=== PATIENT | male | born 1950 | race Caucasian/White ===

== ENCOUNTER 2016-12-20 01:24 | Inpatient (IN) | payer MEDICARE, BC ==
--- NOTE | 2016-12-20 01:49 | ED ---
General Adult HPI - General Chief complaint: Abdominal Pain Stated complaint: Abdominal Pain Time Seen by Provider: 12/20/16 01:25 Source: patient, EMS, RN notes reviewed Mode of arrival: EMS - History of Present Illness Initial comments: This is a 66-year-old male who was sent to the emergency department from [facility] because he has small bowel obstruction on CAT scan. Patient states that he was having some abdominal pain and cramping as well as diarrhea yesterday but today that stopped and just became more painful since he went to the emergency department in the diagnosed with a small bowel infection. Patient states he had a recent colonoscopy a few months ago. Patient states that he has never had any surgery on his abdomen. Patient states currently he is having occasional cramping but there is no pain at this time. Patient denies any nausea or vomiting at any point in time. Patient denies any fever or chills. Patient states she has past right any bowel movement since she's been at [facility] - Related Data Home Medications Medication Instructions Recorded Confirmed Cyclobenzaprine [Flexeril] 10 mg PO TID PRN 12/05/15 05/29/16 Hydrocodone/Acetaminophen 1 tab PO QID PRN 12/05/15 05/29/16 [Hydrocodon-Acetaminoph 7.5-325] Metoprolol Tartrate [Lopressor] 25 mg PO BID PRN 12/05/15 05/29/16 Allergies Allergy/AdvReac Type Severity Reaction Status Date / Time meperidine HCl [From Demerol] Allergy Hallucinati Verified 12/20/16 01:34 ons Review of Systems ROS Statement: Those systems with pertinent positive or pertinent negative responses have been documented in the HPI. ROS Other: All systems not noted in ROS Statement are negative. Past Medical History Past Medical History: Hypertension Additional Past Medical History / Comment(s): Degenerative Disc Disease History of Any Multi-Drug Resistant Organisms: None Reported Past Surgical History: Back Surgery, Heart Catheterization With Stent, Orthopedic Surgery Additional Past Surgical History / Comment(s): cardiac stents x 3,lt rot cuff Past Anesthesia/Blood Transfusion Reactions: No Reported Reaction Date of Last Stent Placement:: 2013 Past Psychological History: No Psychological Hx Reported Smoking Status: Never smoker Past Alcohol Use History: Daily Additional Past Alcohol Use History / Comment(s): 3-8 ou beers daily Past Drug Use History: None Reported - Past Family History Mother Family Medical History: No Reported History Father Additional Family Medical History / Comment(s): heart problems General Exam - General Exam Comments Initial Comments: GENERAL: Patient is well-developed and well-nourished. Patient is nontoxic and well- hydrated and is in no acute distress. ENT: Neck is soft and supple. No significant lymphadenopathy is noted. Oropharynx is clear. Moist mucous membranes. Neck has full range of motion without eliciting any pain. EYES: The sclera were anicteric and conjunctiva were pink and moist. Extraocular movements were intact and pupils were equal round and reactive to light. Eyelids were unremarkable. PULMONARY: Unlabored respirations. Good breath sounds bilaterally. No audible rales rhonchi or wheezing was noted. CARDIOVASCULAR: There is a regular rate and rhythm without any murmurs gallops or rubs. Femoral pulses are equal bilaterally ABDOMEN: Soft and nontender with normal bowel sounds. Abdomen is mildly distended SKIN: Skin is clear with no lesions or rashes and otherwise unremarkable. NEUROLOGIC: Patient is alert and oriented x3. Cranial nerves II through XII are grossly intact. Motor and sensory are also intact. Normal speech, volume and content. Symmetrical smile. MUSCULOSKELETAL: Normal extremities with adequate strength and full range of motion. No lower extremity swelling or edema. No calf tenderness. LYMPHATICS: No significant lymphadenopathy is noted PSYCHIATRIC: Normal psychiatric evaluation. Course Vital Signs 12/20/16 01:31 Temperature 98.6 F Pulse Rate 87 Respiratory 18 Rate Blood Pressure 172/94 O2 Sat by Pulse 96 Oximetry Medical Decision Making - Medical Decision Making I reviewed the CAT scan results does indicate that the patient has a small bowel obstruction Disposition Clinical Impression: Small bowel obstruction Disposition: ADMITTED IP TO THIS [facility] Time of Disposition: 01:49
[2016-12-20] MEDS ORDERED: ONDANSETRON 4 MG/2 ML VIAL IVP PRN (01:50)
[2016-12-20 02:59] VITALS: BMI 30.2
[2016-12-20] MEDS: HYDROmorphone 1 MG/ML 1 ML SYRINGE IVP PRN ×2 (03:22→11:27)
[2016-12-20] MEDS: SODIUM CHLORIDE 0.9% 1,000 ML IV ONE ×2 (03:22→11:29)
[2016-12-20] MEDS ORDERED: TEMAZEPAM 15 MG CAP PO PRN (13:20)
[2016-12-20 13:56] LABS: Basophils % (A) 1 %; CHCM 33.3; Eosinophils # (A) 0.1 k/uL (0-0.7); Eosinophils % (A) 2 %; HCT 39.2 % (39.0-53.0); HDW 2.53; HGB 12.8 gm/dL (13.0-17.5); Luc # (Auto) 0.15; Luc % (Auto) 3; Lymphocytes # (A) 0.8 k/uL (1.0-4.8); Lymphocytes % (A) 15 %; MCH 31.5 pg (25.0-35.0); MCHC 32.6 g/dL (31.0-37.0); MCV 96.6 fL (80.0-100.0); Monocytes # (A) 0.4 k/uL (0-1.0); Monocytes % (A) 7 %; Neutrophils % (A) 73 %; RBC 4.06 m/uL (4.30-5.90); RDW 13.6 % (11.5-15.5); WBC 5.4 k/uL (3.8-10.6); WBC (Perox) 5.86
--- NOTE | 2016-12-20 14:00 | P.GSHP ---
History of Present Illness H&P Date: 12/20/16 Chief Complaint: Abdominal pain Patient is a 66-year-old white male transferred from [facility] with concerns for small bowel obstruction. Patient reports having approximately 5 episodes of loose watery diarrhea on Sunday. Patient states that yesterday his abdomen became very bloated and painful and he is unable to pass flatus. Computed tomography scan of abdomen and pelvis from [facility] reviewed with radiologist at [facility] with evidence of primarily right lower quadrant small bowel distention without significant obstruction. No history of fevers, nausea, or vomiting. Patient did report not feeling well for a couple of days prior to the diarrhea. Patient denies melena or hematochezia. Patient's last colonoscopy in May 2016 reported normal. Patient does report occasional constipation when taking opiates for chronic back pain. Upon examination, patient reports improvement in abdominal pain and abdominal distention. Patient is passing flatus without bowel movement. Denies chills, nausea, vomiting, shortness of breath, or chest pain. Afebrile. Reported lab values from [facility]: WBC 8.2. Hemoglobin 15.4. Past Medical History Past Medical History: Hypertension Additional Past Medical History / Comment(s): Degenerative Disc Disease. 3 heart stents. HTN. colonoscopy 10/2016 History of Any Multi-Drug Resistant Organisms: None Reported Past Surgical History: Back Surgery, Heart Catheterization With Stent, Orthopedic Surgery Additional Past Surgical History / Comment(s): cardiac stents x 3,lt rot cuff Past Anesthesia/Blood Transfusion Reactions: No Reported Reaction Date of Last Stent Placement:: 2013 Past Psychological History: No Psychological Hx Reported Smoking Status: Never smoker Past Alcohol Use History: Daily Additional Past Alcohol Use History / Comment(s): 3-8 ou beers daily Past Drug Use History: None Reported - Past Family History Mother Family Medical History: No Reported History Father Additional Family Medical History / Comment(s): heart problems Medications and Allergies Home Medications Medication Instructions Recorded Confirmed Type Cyclobenzaprine [Flexeril] 10 mg PO TID PRN 12/05/15 12/20/16 History Metoprolol Tartrate [Lopressor] 25 mg PO BID PRN 12/05/15 12/20/16 History Hydrocodone/Acetaminophen [[place] 1 tab PO QID PRN 12/20/16 12/20/16 History 10-325] Allergies Allergy/AdvReac Type Severity Reaction Status Date / Time meperidine HCl [From Demerol] Allergy Hallucinati Verified 12/20/16 01:34 ons Surgical - Exam Vital Signs Temp Pulse Resp BP Pulse Ox 98.6 F 87 18 172/94 96 12/20/16 01:31 12/20/16 01:31 12/20/16 01:31 12/20/16 01:31 12/20/16 01:31 GENERAL: Pt awake and alert, well-appearing, well-nourished, and in no acute distress. HEAD: Atraumatic, normocephalic. EYES: Pupils equal and round. Sclera anicteric, conjunctiva are normal. ENT: Moist mucous membranes. LUNGS: Breath sounds clear to auscultation bilaterally. No wheezes, rales, or rhonchi. HEART: Heart S1, S2, no S3 or S4. Regular rate and rhythm. Systolic murmur. ABDOMEN: Soft, mild diffuse tenderness, distended, normoactive bowel sounds. No guarding, no rebound. No masses or organomegaly appreciated. NEUROLOGICAL: Pt oriented x 3. Assessment and Plan Plan: Impression: 1. Acute abdominal pain and distention, present on admission, suspect secondary to ileus, improved. Plan: 1. Start patient on clear liquid diet. Continue IV hydration. Increase activity. Continue supportive treatment and pain management. Repeat abdominal x-ray in a.m. The above impression and plan have been discussed and directed by Dr. Leo. Derik GARCIA acting as scribe for Dr. Leo.
[2016-12-20 14:05] LABS: ALT 54 U/L (21-72); AST 31 U/L (17-59); Alkaline Phosphatase 67 U/L (38-126); Anion Gap 9 mmol/L; Blood Urea Nitrogen 17 mg/dL (9-20); Calcium 8.6 mg/dL (8.4-10.2); Carbon Dioxide 24 mmol/L (22-30); Chloride 108 mmol/L (98-107); Glucose 87 mg/dL (74-99); Non-African American GFR(MDRD) >60 (>60 ml/min/1.73 sqM); Potassium 4.2 mmol/L (3.5-5.1); Sodium 141 mmol/L (137-145); Total Protein 6.1 g/dL (6.3-8.2)
[2016-12-20 18:05] LABS: Appearance,Urine Clear (Clear); Bilirubin,Urine Negative (Negative); Glucose,Urine (UA) Negative (Negative); Ketones,Urine 2+ (Negative); Leukocyte Esterase,Urine Negative (Negative); Nitrite,Urine Negative (Negative); PH, Urine 5.5 (5.0-8.0); Protein,Urine Negative (Negative); UA Billing (MACRO vs. MICRO) CHEM; Urobilinogen,Urine <2.0 mg/dL (<2.0)
--- NOTE | 2016-12-20 18:59 | HP ---
DATE OF ADMISSION: 12/20/2016 CHIEF COMPLAINT: Abdominal pain. HISTORY OF PRESENT ILLNESS: This 66-year-old gentleman with a past medical history of hypertension, DJD, history of hypertension, history of back surgery, CAD, stenting, being followed by Dr. Bonds in the outpatient setting was complaining of abdominal pain which is mostly situated in the left upper quadrant. The patient went to [facility]. The patient was found to have small bowel obstruction on the CT scan. The patient also had some diarrhea. The patient also passing some gas. Because of concerns of the CAT scan the patient was referred to [facility] and admitted for further evaluation and treatment. There is no history of fevers, rigors or chills. No history of headaches, loss of consciousness or seizures. Bowel sounds are present. Past medical history: History of hypertension. History of degenerative joint disease, history of coronary artery disease and stent, history of colonoscopy. History of back surgery, DJD. Medications prior to medications include home medications: 1. Lopressor 25 mg b.i.d. p.r.n. 2. [place] 1 tablets q.i.d. p.r.n. 3. Flexeril 10 mg daily p.r.n. ALLERGIES: DEMEROL. FAMILY HISTORY: Heart problems in the family. SOCIAL HISTORY: No history of smoking. No history of alcohol intake. REVIEW OF SYSTEMS: ENT: Diminished hearing, diminished vision. The patient is hard of hearing. CARDIOVASCULAR: No angina or palpitations . RESPIRATORY: No cough or hemoptysis. GI: As mentioned earlier. GENITOURINARY: No dysuria. CENTRAL NERVOUS SYSTEM: No numbness or weakness. ALLERGIES/IMMUNOLOGY: No asthma or hayfever. MUSCULOSKELETAL: As mentioned earlier. HEMATOLOGY/ONCOLOGY: No history of anemia. ENDOCRINE: No history of diabetes, hypothyroidism. CONSTITUTIONAL: As mentioned earlier. DERMATOLOGY: Negative. RHEUMATOLOGY: Negative. PSYCHIATRY: As mentioned earlier. PHYSICAL EXAMINATION: The patient is alert and oriented times three. Pulse 85. Blood pressure 155/94. Respiratory rate 18. Temperature 97.8, pulse ox 94% on room air. HEENT: Conjunctivae normal. NECK: No jugular venous distention. CARDIOVASCULAR: S1, S2 muffled. RESPIRATORY: Breath sounds diminished at the bases. A few scattered rhonchi. No crackles. ABDOMEN: Soft, mild diffuse distention. No tenderness. No guarding. No rigidity. No mass palpable. Bowel sounds present. LEGS: No edema. No swelling. CENTRAL NERVOUS SYSTEM: Higher functions as mentioned earlier. Moves all four limbs. No focal deficits. LYMPHATICS: No lymph nodes palpable in the neck, axillae or groin. SKIN: No ulcer, rash or bleeding. JOINTS: No active joint deformity. LABS: Reviewed. ASSESSMENT: 1. Abdominal pain with possible acute partial small bowel obstruction. 2. Obesity. Body mass index 3. Hypertension. 4. History of degenerative joint disease. 5. History of coronary artery disease and stent. 6. Hypertension. 7. History of colonoscopy. 8. History of back surgery. 9. FULL CODE. RECOMMENDATIONS AND DISCUSSION: In this 60-year-old gentleman who presented with multiple complex medical issues, we will monitor the patient closely, continue the current medications, continue symptomatic treatment. Otherwise, surgical consultation will be done. H2 blockers. Otherwise we will continue to monitor. DVT prophylaxis guarded prognosis because of multiple complex medical issues. Further recommendations to follow. A copy of dictation being forwarded to Dr. Bonds who is the primary care physician. We will follow with surgery. Conservative line of management. Further recommendations to follow. MTDD
[2016-12-20] MEDS: PANTOPRAZOLE 40 MG/10 ML VIAL IVP SCH (19:30)
[2016-12-20] MEDS: HYDROcodone/APAP 10-325MG 1 EACH TAB PO PRN (19:39)
[2016-12-20] MEDS: CYCLOBENZAPRINE 10 MG TAB PO PRN (21:09)
[2016-12-20] MEDS: ALPRAZolam 0.25 MG TAB PO PRN (21:09)
[2016-12-21] MEDS: HYDROcodone/APAP 10-325MG 1 EACH TAB PO PRN ×2 (05:36→21:17)
[2016-12-21 08:01] LABS: Anion Gap 7 mmol/L; Blood Urea Nitrogen 11 mg/dL (9-20); Calcium 8.5 mg/dL (8.4-10.2); Carbon Dioxide 22 mmol/L (22-30); Chloride 106 mmol/L (98-107); Glucose 83 mg/dL (74-99); Non-African American GFR(MDRD) >60 (>60 ml/min/1.73 sqM); Potassium 4.1 mmol/L (3.5-5.1); Sodium 135 mmol/L (137-145)
--- NOTE | 2016-12-21 08:02 | XR ---
EXAMINATION TYPE: XR abdomen 2V DATE OF EXAM: 12/21/2016 7:47 AM CLINICAL DATA: 66-year-old male ileus follow-up, COMPARISON: 11/24/2014, 12/19/2016 FINDINGS: No evidence for free intraperitoneal air. Colonic and small bowel air fluid levels are demonstrated. Small bowel dilated up to 4.8 cm. Prominen t colonic gas is seen within the transverse colon. No significant rectal gas is seen. IMPRESSION: Relatively stable findings as compared to recent CT with colonic and small bowel air fluid levels. Fi ndings could represent generalized ileus or partial small bowel obstruction. Small bowel loops are di lated up to 4.8 cm.
[2016-12-21] MEDS: METOPROLOL TARTRATE 25 MG TAB PO SCH (08:08)
[2016-12-21] MEDS: PANTOPRAZOLE 40 MG/10 ML VIAL IVP SCH (08:08)
[2016-12-21 08:17] LABS: Basophils % (A) 0 %; CH 32.2; CHCM 33.8; Eosinophils # (A) 0.1 k/uL (0-0.7); Eosinophils % (A) 1 %; HCT 38.6 % (39.0-53.0); HDW 2.52; HGB 12.9 gm/dL (13.0-17.5); Luc # (Auto) 0.13; Luc % (Auto) 2; Lymphocytes # (A) 0.7 k/uL (1.0-4.8); Lymphocytes % (A) 12 %; MCH 31.8 pg (25.0-35.0); MCHC 33.3 g/dL (31.0-37.0); MCV 95.6 fL (80.0-100.0); Mean Platelet Volume 6.9; Monocytes # (A) 0.4 k/uL (0-1.0); Monocytes % (A) 6 %; Neutrophils # (A) 4.9 k/uL (1.3-7.7); Neutrophils % (A) 78 %; RBC 4.04 m/uL (4.30-5.90); RDW 13.4 % (11.5-15.5); WBC 6.3 k/uL (3.8-10.6); WBC (Perox) 7.27
[2016-12-21] MEDS: SODIUM CHLORIDE 0.9% 1,000 ML IV SCH ×2 (11:04→21:14)
[2016-12-21] MEDS: IOHEXOL 350 MG/ML 25 ML BOTTLE (ORAL USE) PO PRN ×2 (11:04→12:07)
--- NOTE | 2016-12-21 11:27 | P.PN ---
Subjective Principal diagnosis: Ileus Patient is a 66-year-old white female admitted with abdominal pain and suspected ileus. Upon examination, patient reports diffuse abdominal pain but states it's improved since yesterday. Denies chills, fevers, nausea, or vomiting. Passing flatus. Patient reports having a small, firm bowel movement. Afebrile. WBC 6.3. Hemoglobin 12.9. Repeat abdominal x-ray with a colonic and small bowel air fluid levels. Small bowel dilated up to 4.8 cm. Prominent colonic gas is seen within the transverse colon. No significant rectal gas is seen. Findings could represent generalized ileus or partial small bowel obstruction per radiologist. Objective - Vital Signs Vital signs: Vital Signs Temp 98.8 F 12/21/16 07:00 Pulse 87 12/21/16 07:00 Resp 16 12/21/16 07:00 BP 149/86 12/21/16 07:00 Pulse Ox 95 12/21/16 07:00 Intake & Output 12/20/16 12/21/16 12/21/16 18:59 06:59 18:59 Intake Total 600 800 480 Output Total 500 Balance 100 800 480 Weight 92.986 kg Intake: Intake, IV Titration 800 Amount Sodium Chloride 0.9% 1, 800 000 ml @ 100 mls/hr IV . Q10H [facility] Rx#:[id number] Oral 600 480 Output: Urine 500 Other: # Voids 1 1 - Exam GENERAL: Pt awake and alert, well-appearing, well-nourished, and in no acute distress. HEAD: Atraumatic, normocephalic. EYES: Pupils equal and round. Sclera anicteric, conjunctiva are normal. ENT: Moist mucous membranes. LUNGS: Breath sounds clear to auscultation bilaterally. No wheezes, rales, or rhonchi. HEART: Heart S1, S2, no S3 or S4. Regular rate and rhythm. Systolic murmur. ABDOMEN: Soft, mild diffuse tenderness, distended, normoactive bowel sounds. No guarding, no rebound. No masses or organomegaly appreciated. NEUROLOGICAL: Pt oriented x 3. - Labs CBC & Chem 7: 12/21/16 07:06 12/21/16 07:06 Labs: Abnormal Lab Results - Last 24 Hours (Table) 12/20/16 12/20/16 12/20/16 Range/Units 13:44 13:47 17:45 RBC 4.06 L (4.30-5.90) m/uL Hgb 12.8 L (13.0-17.5) gm/dL Hct (39.0-53.0) % Lymphocytes # 0.8 L (1.0-4.8) k/uL Sodium (137-145) mmol/L Chloride 108 H (98-107) mmol/L Total Protein 6.1 L (6.3-8.2) g/dL Urine Ketones 2+ H (Negative) 12/21/16 12/21/16 Range/Units 07:06 07:06 RBC 4.04 L (4.30-5.90) m/uL Hgb 12.9 L (13.0-17.5) gm/dL Hct 38.6 L (39.0-53.0) % Lymphocytes # 0.7 L (1.0-4.8) k/uL Sodium 135 L (137-145) mmol/L Chloride (98-107) mmol/L Total Protein (6.3-8.2) g/dL Urine Ketones (Negative) Assessment and Plan Plan: Impression: 1. Acute abdominal pain and distention, present on admission, suspect secondary to ileus or partial small bowel obstruction. Plan: 1. Patient will undergo CT of abdomen and pelvis with oral contrast. Continue clear liquid diet. Continue IV hydration. Increase activity. Continue supportive treatment and pain management. The above impression and plan have been discussed and directed by Dr. Leo. Derik GARCIA acting as scribe for Dr. Leo.
--- NOTE | 2016-12-21 13:18 | CT ---
EXAMINATION TYPE: CT abdomen pelvis wo con DATE OF EXAM: 12/21/2016 12:47 PM COMPARISON: Plain film same date, prior CT abdomen pelvis 19 December 2016 HISTORY: SBO CT DLP: 1152 mGycm Automated exposure control for dose reduction was used. TECHNIQUE: Helical acquisition of images from the lung bases through the pelvis. FINDINGS: Lack of intravenous contrast could compromise sensitivity. LUNG BASES: No significant abnormality is appreciated. There are coronary artery calcifications. AORTA: No significant abnormality is appreciated. LIVER/GB: No significant abnormality is appreciated. PANCREAS: No significant abnormality is seen. SPLEEN: No significant abnormality is seen. ADRENALS: No significant abnormality is seen. KIDNEYS: No significant abnormality is seen. REPRODUCTIVE ORGANS: Prostate is enlarged and shows some associated calcifications. URINARY BLADDER: No significant abnormality is seen. BOWEL: Contrast is coursing to the level of the distal ileum, small kink is present with focus of sm all bowel wall thickening at this level. Contrast is not seen distal to this level. This may be due t o the timing of the exam. The appendix is normal. Fluid-filled loops of colon are noted. Proximal sma ll bowel loop approaches 4 cm in diameter. More distal loops are decompressed. FREE AIR: No Free Air is visible. ASCITES: None visible. PELVIC ADENOPATHY: None visualized. RETROPERITONEAL ADENOPATHY: No Retroperitoneal Adenopathy visible. OSSEOUS STRUCTURES: Degenerative disc changes are present, there is associated facet arthropathy at the lower lumbar spine. IMPRESSION: FINDINGS MAY BE DUE TO NORMAL TRANSIT OF THE CONTRAST MATERIAL, FOLLOW-UP PLAIN FILM COULD BE PERFORM ED TO ASSESS FOR CONTRAST TRANSIT INTO THE COLON. SUSPECT THERE IS BEEN SOME IMPROVEMENT COMPARED TO PREVIOUS CT. NONSPECIFIC FINDINGS ABOVE, FOLLOW-UP INDICATED SHOULD BOWEL OBSTRUCTION BE SUSPEC PANCHO CLINICALLY. NONCONTRAST EXAM.
--- NOTE | 2016-12-21 18:32 | PN ---
DATE OF SERVICE: 12/21/2016 This 66-year-old gentleman who was admitted with abdominal pain with possible acute partial small bowel obstruction is being closely monitored. Abdominal pelvic CT scan has been repeated today which showed contrast questionably at the level of the distal ileum. No chest pain or palpitation. No fever. On exam, alert and oriented x3. Pulse is 87, blood pressure 140/86, temperature 98.7, pulse ox 94% on room air. HEENT: Conjunctivae normal. NECK: No JVD. CARDIOVASCULAR: S1 and S2 muffled. LUNGS: Breath sounds diminished at the bases. No rhonchi, no crackles. ABDOMEN: Soft, nontender. Discomfort on palpation. Otherwise no guarding, no rigidity. No masses palpable. EXTREMITIES: Legs no edema. LOCKS INSPECTOR: No focal deficits. LABS: Plain film of the abdomen showed some nonspecific dilated bowels. ASSESSMENT: 1. Abdominal pain with possible acute partial obstruction. 2. Obesity, body mass index of 30. 3. History of hypertension. 4. History of degenerative joint disease. 5. History of coronary artery disease and stent. 6. History of colonoscopy. 7. History of back surgery. 8. FULL CODE. RECOMMENDATIONS AND DISCUSSION: This 66-year-old gentleman who presented with multiple complex medical issues, we will monitor the patient closely. Continue the current medications. CT scan of the abdomen seems to be improving at this time. We will follow closely with Surgery. Repeat labs will be ordered. Monitor closely. Guarded prognosis because of multiple complex medical issues. Further recommendations to follow.
[2016-12-21] MEDS: ALPRAZolam 0.25 MG TAB PO PRN (21:17)
[2016-12-21] MEDS: CYCLOBENZAPRINE 10 MG TAB PO PRN (22:33)
[2016-12-22] MEDS: SODIUM CHLORIDE 0.9% 1,000 ML IV SCH (05:10)
[2016-12-22 07:07] LABS: Basophils % (A) 0 %; CH 32.2; CHCM 33.9; Eosinophils # (A) 0.1 k/uL (0-0.7); Eosinophils % (A) 2 %; HCT 38.9 % (39.0-53.0); HDW 2.48; HGB 12.9 gm/dL (13.0-17.5); Luc # (Auto) 0.17; Luc % (Auto) 3; Lymphocytes # (A) 0.9 k/uL (1.0-4.8); Lymphocytes % (A) 17 %; MCH 31.6 pg (25.0-35.0); MCHC 33.2 g/dL (31.0-37.0); MCV 95.4 fL (80.0-100.0); Mean Platelet Volume 6.7; Monocytes # (A) 0.5 k/uL (0-1.0); Monocytes % (A) 10 %; Neutrophils # (A) 3.8 k/uL (1.3-7.7); Neutrophils % (A) 68 %; RBC 4.08 m/uL (4.30-5.90); RDW 13.3 % (11.5-15.5); WBC 5.6 k/uL (3.8-10.6); WBC (Perox) 6.18
[2016-12-22 07:23] LABS: Anion Gap 10 mmol/L; Blood Urea Nitrogen 6 mg/dL (9-20); Calcium 8.8 mg/dL (8.4-10.2); Carbon Dioxide 24 mmol/L (22-30); Chloride 106 mmol/L (98-107); Glucose 96 mg/dL (74-99); Non-African American GFR(MDRD) >60 (>60 ml/min/1.73 sqM); Potassium 4.1 mmol/L (3.5-5.1); Sodium 140 mmol/L (137-145)
[2016-12-22] MEDS: PANTOPRAZOLE 40 MG/10 ML VIAL IVP SCH (08:11)
[2016-12-22] MEDS: METOPROLOL TARTRATE 25 MG TAB PO SCH (08:11)
[2016-12-22 08:24] VITALS: BP 160/90; PULSE 75; RESP 15; TEMP 98.2
--- NOTE | 2016-12-22 08:47 | XR ---
EXAMINATION TYPE: XR abdomen 2V DATE OF EXAM: 12/22/2016 8:36 AM CLINICAL HISTORY: Pain possible obstruction progress study TECHNIQUE: Supine, and upright views of the abdomen are obtained. COMPARISON: Abdominal x-ray and CT abdomen and pelvis from one day earlier FINDINGS: Contrast from recent CT has progressed into the colon. There is gas and contrast slightly p rominent colon. Contrast-filled normal-appearing appendix is present. Contrast is seen in nondistende d sigmoid colon and rectum. Gas is seen in scattered slightly prominent small bowel loops with air-fl uid levels in the left mid to lower abdomen. Gas is seen in nondistended stomach. No pneumoperitoneum is present. Left-sided pelvic phleboliths are seen. Spurring lower lumbar spine i s noted. The lung bases are clear. IMPRESSION: Overall nonspecific bowel gas pattern. Complete small bowel obstruction is not present. Possible mid partial small bowel obstruction remains present.
--- NOTE | 2016-12-22 15:13 | P.PN ---
Subjective Principal diagnosis: Ileus Patient is a 66-year-old white female admitted with abdominal pain and suspected ileus. Upon examination, patient is feeling better. Denies chills, fevers, nausea, vomiting, shortness of breath, chest pain, or abdominal pain. Patient did have an episode of diarrhea followed by 2 normal bowel movements last night. Patient reports passing flatus this morning. Tolerating a clear liquid diet. Afebrile. WBC 6.3. Hemoglobin 5.6. Objective - Vital Signs Vital signs: Vital Signs Temp 98.2 F 12/22/16 07:00 Pulse 75 12/22/16 07:00 Resp 15 12/22/16 07:00 BP 160/90 12/22/16 07:00 Pulse Ox 98 12/22/16 07:00 Intake & Output 12/21/16 12/22/16 12/22/16 18:59 06:59 18:59 Intake Total 880 940 240 Balance 880 940 240 Intake: Intake, IV Titration 400 Amount Sodium Chloride 0.9% 1, 400 000 ml @ 100 mls/hr IV . Q10H [facility] Rx#:[id number] Oral 880 540 240 Other: Voiding Method Toilet # Voids 1 1 2 # Bowel Movements 1 - Exam GENERAL: Pt awake and alert, well-appearing, well-nourished, and in no acute distress. HEAD: Atraumatic, normocephalic. EYES: Pupils equal and round. Sclera anicteric, conjunctiva are normal. ENT: Moist mucous membranes. LUNGS: Breath sounds clear to auscultation bilaterally. No wheezes, rales, or rhonchi. HEART: Heart S1, S2, no S3 or S4. Regular rate and rhythm. Systolic murmur. ABDOMEN: Soft, nontender, distended, normoactive bowel sounds. No guarding, no rebound. No masses or organomegaly appreciated. NEUROLOGICAL: Pt oriented x 3. - Labs CBC & Chem 7: 12/22/16 06:43 12/22/16 06:40 Labs: Abnormal Lab Results - Last 24 Hours (Table) 12/22/16 12/22/16 Range/Units 06:40 06:43 RBC 4.08 L (4.30-5.90) m/uL Hgb 12.9 L (13.0-17.5) gm/dL Hct 38.9 L (39.0-53.0) % Lymphocytes # 0.9 L (1.0-4.8) k/uL BUN 6 L (9-20) mg/dL Assessment and Plan Plan: Impression: 1. Acute abdominal pain and distention, present on admission, suspect secondary to ileus or partial small bowel obstruction, resolved. Plan: 1. Advance diet to full liquids. Increase activity. From surgical standpoint , patient is stable for discharge. Patient will follow-up with Dr. Leo in the office in 1 week. The above impression and plan have been discussed and directed by Dr. Leo. Derik GARCIA acting as scribe for Dr. Leo.
--- NOTE | 2016-12-23 19:16 | DS ---
DATE OF ADMISSION: 12/20/2016 DATE OF DISCHARGE: 12/22/2016 FINAL DIAGNOSES: 1. Abdominal pain with possible acute partial small-bowel obstruction. 2. Obesity with a body mass index of 30. 3. Hypertension. 4. History of degenerative joint disease. 5. History of coronary artery disease and stent. 6. Colonoscopy. 7. Back surgery. 8. FULL CODE. DISCHARGE DISPOSITION: The patient will be discharged in stable condition with guarded prognosis. HISTORY OF PRESENT ILLNESS: This 66-year-old gentleman with a past medical history of multiple medical problems admitted with abdominal pain and features of acute partial small-bowel obstruction. The patient had plain x-ray abdomen and a CAT scan of the abdomen. Partial obstruction was suspected and the patient was subsequently seen by Surgery. On exam, vitals are stable. CARDIOVASCULAR: S1 and S2 muffled. ABDOMEN: Soft. NERVOUS SYSTEM: Nonfocal. The patient will be discharged in a stable condition with a guarded prognosis. Cardiac diet. Activity limited until followup. Follow up with Dr. Bonds in 2 to 3 days. Follow up with Dr. Leo is advised. Medications are: 1. Flexeril 10 mg t.i.d. p.r.n. 2. Hydrocodone 1 tablet p.o. q.i.d. p.r.n. 3. Lopressor 25 mg p.o. daily. 4. Protonix 40 mg p.o. daily.
== END 2016-12-22 15:07 | disposition home or self-care (01) | DRG 390 ==
LOC: EC 01:24 → 3SUR 01:49
PROVIDERS: ADMIT Hospitalist; ATTEND Hospitalist
DX: K56.60 Unspecified intestinal obstruction (principal); I10 Essential (primary) hypertension; G89.29 Other chronic pain; M54.9 Dorsalgia, unspecified; M19.90 Unspecified osteoarthritis, unspecified site; I25.10 Atherosclerotic heart disease of native coronary artery without angina pectoris; Z95.5 Presence of coronary angioplasty implant and graft
CPT/HCPCS: 74020; 74176; 80048; 80053; 81003; 85025; 96374; 99285

== ENCOUNTER → 2017-09-11 | Outpatient (CLI) | payer MEDICARE, BC ==
--- NOTE | 2017-09-11 09:39 | XR ---
EXAMINATION TYPE: XR cervical spine comp DATE OF EXAM: 09/11/2017 TECHNIQUE: Frontal, lateral, oblique, and open mouth view of the cervical spine are obtained. HISTORY: [id number] cervicalgia COMPARISON: None FINDINGS: The cervical spine is visualized in its entirety from C1 thru the top of T1 level, there i s reversal of normal cervical curvature without evidence of acute fracture or dislocation. The pre-v ertebral soft tissue appears within normal limits. The C1-C2 articulation is within normal limits on the open mouth view. Osseous structures are demineralized. There is arthrodesis or ossific fusion C4-C7 vertebra. There is evidence of prior surgery with posterior spinous process resection C4 and C5 vertebra. Subcutaneous sutures posteriorly are noted. The oblique images are suboptimal due to loss of normal cervical curva ture. IMPRESSION: Demineralization, evidence of prior surgery/arthrodesis or ossific fusion C4-C7 levels. R eversal of normal cervical curvature noted.
== END | disposition home or self-care (01) ==
LOC: RADXRYALE 09:03
PROVIDERS: ATTEND Physician Assistant Medical
DX: M81.0 Age-related osteoporosis without current pathological fracture (principal); Z98.1 Arthrodesis status
CPT/HCPCS: 72050

== ENCOUNTER → 2018-04-08 | Outpatient (CLI) | payer MEDICARE, BC ==
--- NOTE | 2018-04-08 12:11 | XR ---
EXAMINATION TYPE: XR lumbosacral spine min 4V DATE OF EXAM: 04/08/2018 COMPARISON: NONE HISTORY: 67-year-old male with increased low back pain TECHNIQUE: 5 views FINDINGS: No pars interarticularis defect. Hypertrophic facet arthropathy throughout the lumbar spine. Alignmen t is maintained and vertebral body heights are preserved. Moderate to severe degenerative disc diseas e at L4-L5 and L5-S1 with disc space narrowing, vacuum phenomenon, and endplate spondylosis. Addition al endplate spondylosis is present throughout the remainder of the lumbar spine. IMPRESSION: 1. No vertebral compression collapse or malalignment. 2. Hypertrophic facet arthropathy throughout. 3. Moderate to advanced disc/endplate degenerative change at L4-L5 and L5-S1.
== END | disposition home or self-care (01) ==
LOC: RADXRYALE 09:08
PROVIDERS: ATTEND Physician Assistant Medical
DX: M47.817 Spondylosis without myelopathy or radiculopathy, lumbosacral region (principal); M46.96 Unspecified inflammatory spondylopathy, lumbar region
CPT/HCPCS: 72110

== ENCOUNTER → 2018-10-31 | Outpatient (CLI) | payer MEDICARE, BC ==
--- NOTE | 2018-10-31 12:15 | XR ---
EXAMINATION TYPE: XR ribs RT w pa chest xray DATE OF EXAM: 10/31/2018 CLINICAL HISTORY: Right anterior lower rib pain TECHNIQUE: Single frontal view of the chest is obtained. A frontal and oblique images of right-sided ribs are acquired. COMPARISON: Chest x-ray November 06, 2013 FINDINGS: There is no focal air space opacity, pleural effusion, or pneumothorax seen. The cardiac silhouette size is within normal limits with atherosclerotic change in the aortic knob. The osseous structures are intact. Dedicated images of right-sided ribs show no acute displaced fracture. No suspicious expansile or lyt ic lesion is seen. Overlying soft tissue is unremarkable. IMPRESSION: 1. No acute cardiopulmonary process. 2. No acute displaced right-sided rib fractures are seen.
== END | disposition home or self-care (01) ==
LOC: RADXRYALE 11:37
PROVIDERS: ATTEND Family Medicine
DX: R07.82 Intercostal pain (principal)

== ENCOUNTER → 2019-04-30 | Outpatient (CLI) | payer MEDICARE, BC ==
--- NOTE | 2019-04-30 09:46 | XR ---
EXAMINATION TYPE: XR abdomen 2V DATE OF EXAM: 04/30/2019 COMPARISON: 12/22/2016 HISTORY: Generalized abdominal pain TECHNIQUE: Upright and supine abdominal radiograph's were obtained FINDINGS: Extensive degenerative changes of the spine are noted. Air is seen within nondilated loops of large and small bowel. No pneumoperitoneum is appreciated. Stable phleboliths are seen within the left hemipelvis in comparison to the prior of 12/22/2016 as well as right femoral atherosclerosis. No a bnormal calcification is seen within the abdomen. Minimal levoscoliosis of the lumbar spine. IMPRESSION: Nonobstructive bowel gas pattern. Extensive degenerative changes of the spine.
== END | disposition home or self-care (01) ==
LOC: RADXRYALE 08:41
PROVIDERS: ATTEND Physician Assistant Medical
DX: R14.3 Flatulence (principal); R10.84 Generalized abdominal pain
CPT/HCPCS: 74019

== ENCOUNTER → 2019-05-23 | Outpatient (CLI) | payer MEDICARE, BC ==
--- NOTE | 2019-05-23 08:28 | CTL ---
EXAMINATION TYPE: CT Low Dose Lung DATE OF EXAM ORDERED: 05/23/2019 COMPARISON: HISTORY: . Low Dose CT Lung Screening CT DLP: [address] CTDI: 2.49 mGy IV CONTRAST USED: None. SCREENING VISIT: First visit COMPARISON: None. TECHNIQUE: Low dose computed tomography scan was performed through the chest at 1 millimeter thick se ctions and reconstructed images in the coronal plane at [address] DIAGNOSTIC QUALITY: Satisfactory FINDINGS: LUNG NODULES: Left lung: Subpleural nodule lateral left lower lobe image 38 measuring 5 mm.Right lung : Ossified granuloma right upper lobe posteriorly. Noncalcified subpleural nodule right upper lobe po steriorly image 54 LUNGS: COPD: Severity: None Fibrosis: Severity:None Lymph nodes: Calcified lymph nodes identified. Other findings: None RIGHT PLEURAL SPACE: Effusion: None Calcification: None Thickening: None Pneumothorax: None LEFT PLEURAL SPACE: Effusion: None Calcification: None Thickening: None Pneumothorax: None HEART: Heart Size: Mildly enlarged Coronary calcification: Mild Pericardial effusion: None OTHER FINDINGS: Upper abdomen: No significant abnormality Bony thorax: Degenerative changes Supraclavicular region: No significant abnormalityOther: No significant abnormalityI IMPRESSION: 1. Evidence of remote granulomatous disease. 2 noncalcified nodules identified. FOLLOW UP CT CHEST RECOMMENDATION: Follow-up screening in one year. Smoking cessation recommended. CT LUNG RAD: Category 2 benign appearance
== END | disposition home or self-care (01) ==
LOC: RADCTMAIN 07:21
PROVIDERS: ATTEND Physician Assistant Medical
DX: Z12.2 Encounter for screening for malignant neoplasm of respiratory organs (principal); R91.8 Other nonspecific abnormal finding of lung field; Z87.891 Personal history of nicotine dependence

== ENCOUNTER → 2019-06-25 | Outpatient (CLI) | payer MEDICARE, BC ==
--- NOTE | 2019-06-25 09:48 | XR ---
EXAMINATION TYPE: XR ankle complete LT DATE OF EXAM: 06/25/2019 CLINICAL HISTORY: Left ankle pain TECHNIQUE: Frontal, lateral and oblique images of the left ankle are obtained. COMPARISON: None. FINDINGS: There is no acute fracture/dislocation evident in the left ankle. There is a chronic fract ure deformity of a prior distal fibular fracture with callus formation and cortical bridging. No senia osteal reaction or cortical erosion is seen. Punctate phlebolith is noted with central lucency. Ankle mortise maintains normal alignment. Well-corticated fragments distal to the medial malleolus are als o likely sequela of remote injury. The ankle mortise appears within normal limits. The overlying so ft tissue appears unremarkable. IMPRESSION: There is no acute fracture or dislocation in the left ankle. Healed, callused fracture d eformity of the distal diaphysis of the left fibula.
== END | disposition home or self-care (01) ==
LOC: RADXRYALE 08:58
PROVIDERS: ATTEND Physician Assistant Medical
DX: M25.571 Pain in right ankle and joints of right foot (principal); Z87.81 Personal history of (healed) traumatic fracture

== ENCOUNTER → 2020-05-10 | Outpatient (CLI) | payer MEDICARE, BC ==
--- NOTE | 2020-05-10 21:39 | XR ---
EXAMINATION TYPE: XR chest 2V DATE OF EXAM: 05/10/2020 COMPARISON: Low-dose lung screening CT May 23, 2019. Prior chest x-ray October 31, 2018. HISTORY: Cough, family history of lung cancer. History of tobacco use. TECHNIQUE: Frontal and lateral views of the chest are obtained. FINDINGS: There is mild underlying emphysematous change without suspicious new focal air space opaci ty, pleural effusion, or pneumothorax seen. The cardiac silhouette size is stable and within normal limits with atherosclerotic and slightly ectatic thoracic aorta redemonstrated. Spine is straightened on lateral view with multilevel spurring. IMPRESSION: Chronic changes without acute pulmonary process. Advise annual low-dose lung screening C T.
== END ==
LOC: RADXRYALE 15:45
PROVIDERS: ATTEND Internal Medicine Cardiovascular Disease
DX: R06.09 Other forms of dyspnea (principal)
CPT/HCPCS: 71046

== ENCOUNTER → 2020-05-21 | Outpatient (CLI) | payer MEDICARE, BC ==
--- NOTE | 2020-05-21 09:34 | US ---
EXAMINATION TYPE: US abdomen limited DATE OF EXAM: 05/21/2020 COMPARISON: CT 12/21/2016 CLINICAL HISTORY: R222 SWELLING,MASS,LUMP,M545 LOW BACK PAIN. Lump right posterior flank for years per patient. Patient states the area will get bigger then reduce in size. Scanning was performed directly over palpable as pointed out by patient. There is a focus which appea rs well-defined and somewhat hypoechoic compared to some surrounding fat but with some possible that echogenicity centrally measuring 6.9 x 2.3 x 4.3 cm without internal vascularity. CT scan shows fat d ensity within the posterior right flank musculature. The left posterior flank was scanned for compari son purposed. IMPRESSION: Findings likely represent lipoma
== END | disposition home or self-care (01) ==
LOC: RADUSWWP 07:32
PROVIDERS: ATTEND Family Medicine
DX: R22.2 Localized swelling, mass and lump, trunk (principal); M54.5 Low back pain
CPT/HCPCS: 76705

== ENCOUNTER → 2020-08-30 | Outpatient (CLI) | payer MEDICARE, BC ==
--- NOTE | 2020-08-30 16:04 | CTL ---
EXAMINATION TYPE: CT Low Dose Lung DATE OF EXAM ORDERED: 08/30/2020 HISTORY: . Lung cancer screening CT DLP: [address] CTDI: 3.9 mGy Automated exposure control for dose reduction was used. SCREENING VISIT: 05/23/2019 COMPARISON: TECHNIQUE: Low dose computed tomography scan was performed through the chest at 1 mm thick sections a nd reconstructed images in the coronal plane at [address] DIAGNOSTIC QUALITY: Satisfactory FINDINGS: LUNG NODULES: Stable subpleural nodule left lower lobe measuring 5 mm. Calcified granuloma right upper lobe posteriorly stable. Subpleural nodule right upper lobe stable. LUNGS: Lungs are clear. No focal pneumonia or pleural effusion. No pneumothorax. No pleural calcification. Coronary artery calcification noted. Calcification near the region of the aortic valve. Heart size no rmal. No pericardial effusion. Trace amount of gynecomastia noted. Hypertrophic and degenerative cooper ges of the spine. A calcified hilar lymph nodes are noted. IMPRESSION: 1. Stable bilateral pulmonary nodules unchanged from the prior exam. FOLLOW UP CT CHEST RECOMMENDATION: Follow-up in one year recommended CT LUNG RAD: Lung-Rad 2 Benign Appearance or Behavior
== END | disposition home or self-care (01) ==
LOC: RADCTMAIN 15:18
PROVIDERS: ATTEND Family Medicine
DX: Z12.2 Encounter for screening for malignant neoplasm of respiratory organs (principal); R91.8 Other nonspecific abnormal finding of lung field; Z87.891 Personal history of nicotine dependence

== ENCOUNTER → 2021-06-14 | Outpatient (CLI) | payer MEDICARE, BC ==
--- NOTE | 2021-06-14 09:15 | XR ---
EXAMINATION TYPE: XR lumbosacral spine min 4V DATE OF EXAM: 06/14/2021 CLINICAL HISTORY: pain COMPARISON: NONE TECHNIQUE: Frontal, lateral, and oblique images of the lumbar spine are obtained. FINDINGS: There are 5 lumbar type vertebral bodies identified. The lumbar spine shows satisfactory alignment without evidence of acute fracture or dislocation. Vertebral body heights are within normal limits. Moderate to severe multilevel degenerative disc disease greatest at L4-5 and L5-S1. Severe f acet joint arthropathy. Scattered ventral spondylosis. The overlying soft tissue appears unremarkab le. IMPRESSION: No acute fracture or dislocation is seen in the lumbar spine.ICD 10 NO FRACTURE, INITIAL EVALUATION
== END | disposition home or self-care (01) ==
LOC: RADXRYALE 08:48
PROVIDERS: ATTEND Physician Assistant Medical
DX: M54.5 Low back pain (principal)
CPT/HCPCS: 72110

== ENCOUNTER → 2021-08-15 | Outpatient (CLI) | payer MEDICARE, BC ==
--- NOTE | 2021-08-15 15:44 | XR ---
EXAMINATION TYPE: XR Hip Complete RT DATE OF EXAM: 08/15/2021 COMPARISON: 07/09/2015 HISTORY: Right hip pain TECHNIQUE: 2 view right hip FINDINGS: Femoral head articulates with the acetabulum. Joint space is preserved. No acute fracture o r dislocation is evident. IMPRESSION: 1. Normal 2 view right hip
== END | disposition home or self-care (01) ==
LOC: RADXRYALE 15:10
PROVIDERS: ATTEND Physician Assistant Medical
DX: M25.551 Pain in right hip (principal)
CPT/HCPCS: 73502

== ENCOUNTER → 2022-03-13 | Outpatient (CLI) | payer MEDICARE, BC ==
--- NOTE | 2022-03-13 14:08 | CTL ---
EXAMINATION TYPE: CT Low Dose Lung DATE OF EXAM ORDERED: 03/13/2022 HISTORY: . Lung cancer screening CT DLP: 142.[address] CTDI: 3.8 mGy Automated exposure control for dose reduction was used. SCREENING VISIT: COMPARISON: 08/30/2020 TECHNIQUE: Low dose computed tomography scan was performed through the chest at 1 mm thick sections a nd reconstructed images in multiple planes at 1 mm and [address] DIAGNOSTIC QUALITY: Satisfactory FINDINGS: FINDINGS: LUNG NODULES: Stable subpleural calcified nodule left lower lobe measuring less than 5 mm. Calcified granuloma right upper lobe posteriorly stable. Additional calcified granuloma noted. Biapic al pleural thickening. Subpleural nodule right upper lobe stable. LUNGS: Lungs are clear. No focal pneumonia or pleural effusion. No pneumothorax. No pleural calcifica tion. Coronary artery calcification noted. Calcification near the region of the aortic valve. Heart size no rmal. No pericardial effusion. Trace amount of gynecomastia noted. Hypertrophic and degenerative changes of the spine. Calcified hil ar lymph nodes are noted. IMPRESSION: 1. Stable bilateral pulmonary nodules unchanged from the prior exam. Majority appear calcified compat ible with benign granuloma. CT LUNG RAD AND CT CHEST RECOMMENDATION: Lung-Rad 2 Benign Appearance or Behavior: Continue annual sc reening with LDCT in 12 months.
== END | disposition home or self-care (01) ==
LOC: RADCTMAIN 07:50
PROVIDERS: ATTEND Family Medicine
DX: Z12.2 Encounter for screening for malignant neoplasm of respiratory organs (principal); R91.8 Other nonspecific abnormal finding of lung field; Z87.891 Personal history of nicotine dependence
CPT/HCPCS: 71271

== ENCOUNTER → 2022-04-04 | Outpatient (CLI) | payer MEDICARE, BC ==
--- NOTE | 2022-04-04 19:53 | US ---
EXAMINATION TYPE: US extremity nonvascular ltd LT DATE OF EXAM: 04/04/2022 COMPARISON: NONE CLINICAL HISTORY: 71-year-old male PAIN IN LEFT LOWER LEG M79.662. Left calf pain x 1 month TECHNIQUE: Targeted scanning along the left mid calf at the site of patient's pain. FINDINGS: Data Analysis Assistant notes: Left calf: no mass or fluid collection seen at patient's area of concern However, the muscle echotexture is somewhat heterogeneous. The normal fibular pattern is not as well delineated. IMPRESSION: No mass or fluid collection identified. However, there is slight heterogeneous appearance to the unde rlying calf musculature. Unclear if this is a technical issue. Unable to exclude underlying muscle ed pari such as from myositis or strain. If symptoms persist, consider MRI.
== END | disposition home or self-care (01) ==
LOC: RADUSWWP 13:34
PROVIDERS: ATTEND Family Medicine
DX: M79.662 Pain in left lower leg (principal)

== ENCOUNTER → 2022-05-09 | Outpatient (CLI) | payer MEDICARE, BC ==
--- NOTE | 2022-05-09 09:37 | XR ---
EXAMINATION TYPE: XR shoulder complete LT DATE OF EXAM: 05/09/2022 COMPARISON: NONE HISTORY: Pain TECHNIQUE: Three views are submitted. FINDINGS: The osseous structures are intact. There is no acute fracture or dislocation. Mild AC joint arthropa thy. IMPRESSION: 1. Mild AC joint arthropathy.
== END | disposition home or self-care (01) ==
LOC: RADXRYALE 09:09
PROVIDERS: ATTEND Physician Assistant Medical
DX: M19.012 Primary osteoarthritis, left shoulder (principal)

== ENCOUNTER → 2022-09-04 | Outpatient (CLI) | payer MEDICARE, BC ==
--- NOTE | 2022-09-04 11:49 | XR ---
EXAMINATION TYPE: XR cervical spine comp DATE OF EXAM: 09/04/2022 11:07 AM INDICATION: Patient age:Male; 72 years old; Reason for study: [id number],M542 ATROPHY,DDD,CERVICALGIA; [facility]. COMPARISON: Cervical spine radiograph 09/11/2017. TECHNIQUE: The cervical spine was imaged in frontal, oblique, and lateral projections. FINDINGS: Reversal of the normal cervical lordosis. No acute fracture or dislocation. Prevertebral soft tissue appears within normal limits. Osseous structures are demineralized. There is arthrodesis or ossific f usion of C4-C7 redemonstrated. Evidence of prior surgery at posterior spinous process resection of C3 -C5. Subcutaneous sutures posterolaterally again noted. Oblique images are poor due to loss of normal cervical curvature. IMPRESSION: Overall similar examination with reversal normal cervical curvature noted, evidence of prior surgery/ arthrodesis or ossific fusion C4-C7 levels.
== END | disposition home or self-care (01) ==
LOC: RADXRYALE 10:20
PROVIDERS: ATTEND Physician Assistant Medical
DX: M62.542 Muscle wasting and atrophy, not elsewhere classified, left hand (principal); M50.30 Other cervical disc degeneration, unspecified cervical region; Z98.1 Arthrodesis status
CPT/HCPCS: 72050

== ENCOUNTER → 2023-04-24 | Outpatient (CLI) | payer MEDICARE ==
--- NOTE | 2023-04-24 13:07 | CTL ---
EXAMINATION TYPE: CT Low Dose Lung DATE OF EXAM ORDERED: 04/24/2023 COMPARISON: 03/13/2022 HISTORY: . Low Dose CT Lung Screening CT DLP: 97.[address] CTDI: 2.6 mGy IV CONTRAST USED: None. SCREENING VISIT: 4 COMPARISON: None. TECHNIQUE: Low dose computed tomography scan was performed through the chest at 1 millimeter thick se ctions and reconstructed images in the coronal plane at [address] DIAGNOSTIC QUALITY: Satisfactory FINDINGS: LUNG NODULES: Scattered calcified granulomas are unchanged. No additional nodules are present. LUNGS: COPD: Severity: Mild Fibrosis: Severity:None Lymph nodes: None Other findings: Calcified hilar and mediastinal lymph nodes compatible with remote granulomatous dise ase. Left-sided gynecomastia. RIGHT PLEURAL SPACE: Effusion: None Calcification: None Thickening: None Pneumothorax: None LEFT PLEURAL SPACE: Effusion: None Calcification: None Thickening: None Pneumothorax: None HEART: Heart Size: Mildly enlarged Coronary calcification: Mild Pericardial effusion: None OTHER FINDINGS: Upper abdomen: No significant abnormality Bony thorax: Degenerative changes Supraclavicular region: No significant abnormalityOther: No significant abnormalityI IMPRESSION: Benign FOLLOW UP CT CHEST RECOMMENDATION: Follow-up screening in one year CT LUNG RAD: LUNG RAD CATEGORY 2 benign appearance and/or behavior
== END | disposition home or self-care (01) ==
LOC: RADCTMAIN 12:31
PROVIDERS: ATTEND Family Medicine
DX: Z12.2 Encounter for screening for malignant neoplasm of respiratory organs (principal); J98.4 Other disorders of lung; Z87.891 Personal history of nicotine dependence
CPT/HCPCS: 71271

== ENCOUNTER → 2023-06-29 | Outpatient (CLI) | payer MEDICARE ==
--- NOTE | 2023-06-29 13:31 | XR ---
EXAMINATION TYPE: XR chest 2V DATE OF EXAM: 06/29/2023 COMPARISON: 05/10/2020 HISTORY: Shortness of breath TECHNIQUE: Frontal and lateral views of the chest are obtained. FINDINGS: Scattered senescent parenchymal changes noted. Hyperinflation compatible with COPD. No evidence for infiltrate. No evidence for atelectasis. Chronic elevation left hemidiaphragm. Heart size is stable. Mediastinal structures are stable and grossly unremarkable. No evidence for hilar prominence. Degenerative changes dorsal spine. IMPRESSION: 1. No evidence for acute pulmonary disease.
== END | disposition home or self-care (01) ==
LOC: RADXRYALE 13:06
PROVIDERS: ATTEND Physician Assistant Medical
DX: R06.02 Shortness of breath (principal); R06.2 Wheezing
CPT/HCPCS: 71046

== ENCOUNTER → 2023-09-19 | Outpatient (CLI) | payer MEDICARE ==
--- NOTE | 2023-09-19 10:11 | FL ---
CLINICAL INDICATION: Evaluate for left diaphragmatic paralysis. COMPARISON: Chest radiograph 09/04/2023 TECHNIQUE: With the patient standing, fluoroscopy of the right and left hemidiaphragm was observed du ring normal resting respiration as well as deep inspiration, deep expiration, and "sniffing." Fluoroscopic time: 6 seconds Fluoroscopic images: 72 Total DAP: 1827.88 uGym2 FINDINGS: There is elevation of the left hemidiaphragm again demonstrated. The left diaphragm contracts during inspiration. Both hemidiaphragms move together. Decreased excursi on of the left hemidiaphragm compared to the right. The right diaphragm contracts during inspiration. Both hemidiaphragms move together. Normal excursion is demonstrated of the right hemidiaphragm. IMPRESSION: No fluoroscopic evidence for diaphragmatic paralysis.
== END | disposition home or self-care (01) ==
LOC: RADUSWWP 09:38
PROVIDERS: ATTEND Internal Medicine
DX: J98.6 Disorders of diaphragm (principal)
CPT/HCPCS: 76000

== ENCOUNTER → 2023-11-26 | Outpatient (CLI) | payer MEDICARE ==
--- NOTE | 2023-11-26 11:19 | XR ---
EXAMINATION TYPE: XR chest 2V DATE OF EXAM: 11/26/2023 COMPARISON: [id number] INDICATION: Acute cough productive short of breath TECHNIQUE: Frontal and lateral views of the chest are obtained. FINDINGS: The heart size is normal. The pulmonary vasculature is normal. Mild linear opacities at the left lung base. Correlate for atelectasis. IMPRESSION: 1. Clinical correlation recommended for left basilar atelectasis.
== END | disposition home or self-care (01) ==
LOC: RADXRYALE 11:00
PROVIDERS: ATTEND Physician Assistant
DX: R05.1 Acute cough (principal); R06.01 Orthopnea
CPT/HCPCS: 71046

== ENCOUNTER → 2023-12-31 | Outpatient (CLI) | payer MEDICARE ==
--- NOTE | 2024-01-01 12:37 | XR ---
EXAMINATION TYPE: XR knee complete RT DATE OF EXAM: 12/31/2023 COMPARISON: NONE HISTORY: 73-year-old male [id number] RT KNEE INJURY, PAIN RT KNEE TECHNIQUE: 3 views FINDINGS: No knee joint effusion. Extensor mechanism is intact. Some vascular calcifications are note d. No acute fracture, subluxation, dislocation. IMPRESSION: No acute osseous abnormality seen.
== END | disposition home or self-care (01) ==
LOC: RADXRYALE 16:02
PROVIDERS: ATTEND Physician Assistant Medical
DX: S80.911A Unspecified superficial injury of right knee, initial encounter (principal); X58.XXXA Exposure to other specified factors, initial encounter; M25.561 Pain in right knee

== ENCOUNTER → 2024-04-16 | Outpatient (CLI) | payer MEDICARE ==
--- NOTE | 2024-04-16 19:21 | CTL ---
EXAMINATION TYPE: CT Low Dose Lung DATE OF EXAM ORDERED: 04/16/2024 HISTORY: 73-year-old male former smoker with 82 pack-year history. Lung cancer screening. Z12.2,F17. 210 NICOTINE DEPENDENCE, CIGARETTES, [facility] CT DLP: 102.[address] CTDI: 2.6 mGy Automated exposure control for dose reduction was used. SCREENING VISIT: Annual follow-up COMPARISON: 04/24/2023 TECHNIQUE: Low dose computed tomography scan was performed through the chest at 1 mm thick sections a nd reconstructed images in multiple planes at 1 mm and [address] DIAGNOSTIC QUALITY: Satisfactory FINDINGS: Heart is normal size without pericardial effusion. [id number] aortic valvular calcifications. T hree-vessel coronary calcifications are noted. Ectatic ascending aorta and 3.9 cm, unchanged. Minimal atherosclerotic arch calcifications with conve ntional arch vessel branching anatomy. Scattered nonenlarged mediastinal lymph nodes and calcified bilateral hilar lymph nodes compatible wi th sequela level granulomatous disease. Clinical statement areas of atelectasis in the mid and lower lungs. No consolidation or pleural effu roselyn. Few benign calcified granulomas are redemonstrated. Unchanged punctate 2 mm subpleural pulmonary nodule lateral left midlung, axial image 123. A 6 mm subpleural pulmonary nodule posterior right upper lobe, axial image 77 appears new/increased i n size. No other suspicious pulmonary nodules. Visualized upper abdomen shows no gross abnormality. Bones: Mild degenerative disc disease mid and lower thoracic spine. IMPRESSION: 1. LungRADS Category 3 (probably benign, 1-2% chance of malignancy); a new/larger 6 mm subpleural pul monary nodule posterior right upper lobe for which follow-up is recommended. 2. Evidence of prior granulomatous disease. CT LUNG RAD AND CT CHEST RECOMMENDATION: Lung-Rad 3 Probably Benign: 6 month follow-up LDCT. S Modifier (other clinically significant findings): None
== END | disposition home or self-care (01) ==
LOC: RADCTMAIN 15:34
PROVIDERS: ATTEND Family Medicine
DX: Z12.2 Encounter for screening for malignant neoplasm of respiratory organs (principal); J98.4 Other disorders of lung; R91.1 Solitary pulmonary nodule; Z87.891 Personal history of nicotine dependence
CPT/HCPCS: 71271

== ENCOUNTER → 2024-12-09 | Outpatient (CLI) | payer MEDICARE ==
--- NOTE | 2024-12-09 10:29 | XR ---
EXAMINATION TYPE: XR chest 2V DATE OF EXAM: 12/09/2024 10:09 AM COMPARISON: Chest x-ray November 26, 2023 CLINICAL INDICATION: Male, 74 years old with history of [id number],J09X2 INFLUENZA A, TECHNIQUE: Frontal and lateral views of the chest are obtained. FINDINGS: There is no focal air space opacity, pleural effusion, or pneumothorax seen. The cardiac silhouette size is stable and upper limits of normal. The osseous structures are intact. IMPRESSION: No acute pulmonary infiltrate. [facility], , 12/09/2024 10:27 AM
== END | disposition home or self-care (01) ==
LOC: RADXRYALE 09:59
PROVIDERS: ATTEND Family Medicine
DX: J09.X1 Influenza due to identified novel influenza A virus with pneumonia (principal); J09.X2 Influenza due to identified novel influenza A virus with other respiratory manifestations
CPT/HCPCS: 71046